=== PATIENT | female | born 1990 | race African-American/Black ===

== ENCOUNTER 2020-07-04 12:08 | Emergency (ER) | payer SELFPAY ==
[~2020-07-04] VITALS: Ht 167.6 cm; Wt 100.0 kg
[2020-07-04] MEDS ORDERED: DEXAMETHASONE 4MG TABLET PO ONE (14:45)
[2020-07-04] MEDS ORDERED: KETOROLAC 60MG/2ML VIAL IM ONE (14:45)
[2020-07-04] MEDS ORDERED: PENICILLIN G BENZATHINE 1,200,000 UNITS/2ML SYR IM ONE (15:15)
[2020-07-04] MEDS ORDERED: IBUP-2028 MT (15:45)
[2020-07-04 15:58] VITALS: BP 116/75
== END 2020-07-04 16:01 | disposition home or self-care (01) ==
LOC: ER 12:08
DX: J02.0 Streptococcal pharyngitis (principal); R59.0 Localized enlarged lymph nodes
CPT/HCPCS: 81025; 87430; 96372; 99284; J0561; J1885; J8540